=== PATIENT | female | born 1950 | race Caucasian/White ===

== ENCOUNTER → 2019-09-27 11:05 | Outpatient (CLI) | payer OTHER, SELFPAY ==
--- NOTE | ~2019-09-27 | XR_ITS ---
XR lumbar spine min 4V DATE: 09/27/2019 11:32 INDICATION: Right sciatica, low back pain. TECHNIQUE: AP, lateral, bilateral oblique and coned lateral lumbosacral views COMPARISON: None FINDINGS: There is minimal dextroscoliosis of the lumbar spine. There is moderate osteopenia. No fracture or bone destruction is evident. The included lower thoracic and lumbar pedicles are intac t. There is mild degenerative spurring of the lumbar spine. Lumbar and lumbosacral interspaces are re latively well preserved. There are degenerative changes at the apophyseal joints particularly at L4-5 and L5-S1 with minimal grade 1 anterolisthesis at L4-5. No spondylolysis or spondylolisthesis is drew dent otherwise. Status post cholecystectomy. IMPRESSION: Minimal dextro scoliosis Moderate osteopenia Degenerative changes, including degenerative change at the apophyseal joints with associated minimal grade 1 anterolisthesis at L4-5 Reviewed, dictated and finalized at location B. IMPRESSION: Minimal dextro scoliosis Moderate osteopenia Degenerative changes, including degenerative change at the apophyseal joints wi th associated minimal grade 1 anterolisthesis at L4-5
== END ==
PROVIDERS: PCP Family Medicine
DX: M54.41 Lumbago with sciatica, right side (principal); M85.88 Other specified disorders of bone density and structure, other site
CPT/HCPCS: 72110

== ENCOUNTER 2022-03-26 20:31 | Emergency (ER) | payer OTHER, SELFPAY | END 2022-03-26 20:35 | disposition left against medical advice (07) | DX: Z53.21 Procedure and treatment not carried out due to patient leaving prior to being seen by health care provider (principal) | CPT/HCPCS: 99199 ==